=== PATIENT | female | born 1960 | race African-American/Black ===

== ENCOUNTER 2021-03-29 14:12 | Emergency (ER) | payer MEDICAID ==
[~2021-03-29] VITALS: Ht 167.6 cm; Wt 53.0 kg
[2021-03-29] MEDS ORDERED: IBUPROFEN 400MG TABLET PO ONE (18:00)
[2021-03-29] MEDS ORDERED: ONDANSETRON 4MG ODT PO ONE (18:00)
[2021-03-29] MEDS ORDERED: ONDANSETRON HCL 4MG/2ML INJ IV STA (21:18)
[2021-03-29] MEDS ORDERED: FAMOTIDINE 20MG/2ML VIAL IV STA (21:18)
[2021-03-29] MEDS ORDERED: MAGNESIUM/ALUMINUM HYDROXIDE/SIMETHICONE 30ML UDC PO STA (21:18)
[2021-03-29] MEDS ORDERED: SODIUM CHLORIDE 0.9% 1,000 ML IV ONE (21:30)
[2021-03-29 22:21] LABS: BASOPHILS % 0.6 % (0.0-2.0); EOSINOPHILS % 0.4 % (0.0-5.0); HEMATOCRIT. 45.5 % (36.0-48.0); HEMOGLOBIN. 15.2 g/dL (12.0-16.0); LYMPHOCYTES % 43.5 % (20.0-50.0); MEAN CORPUSCULAR HEMOGLOBIN 30.2 pg (28.0-32.0); MEAN CORPUSCULAR VOLUME 90.6 fL (81.0-99.0); MEAN PLATELET VOLUME 6.2 fl (7.4-10.4); MONOCYTES % 7.5 % (2.0-8.0); PLATELET 290 x1000/uL (130-400); RED BLOOD CELL COUNT 5.03 mill/uL (4.2-5.4); RED CELL DISTRIBUTION WIDTH 13.9 % (11.6-14.6)
[2021-03-29 22:25] LABS: CHLORIDE 106 mEq/L (98-107)
[2021-03-29 22:31] LABS: TOTAL IRON BINDING CAPACITY 423 ug/dL (250-450)
[2021-03-29 22:38] LABS: HCG SCREEN NEGATIVE
[2021-03-29 22:43] LABS: CLARITY URINE CLEAR (CLEAR); COLOR URINE YELLOW (YELLOW); KETONES URINE TRACE (NEGATIVE); LEUKOCYTE ESTERASE URINE 1+ (NEGATIVE); NITRITE URINE NEGATIVE (NEGATIVE); OCCULT BLOOD URINE TRACE (NEGATIVE); PH URINE 6.5 (4.5-8.0); PROTEIN URINE NEGATIVE (NEGATIVE); SPECIFIC GRAVITY URINE 1.015 (1.005-1.030)
[2021-03-30 00:38] VITALS: BP 125/78
== END 2021-03-30 00:40 | disposition home or self-care (01) ==
LOC: ER 14:12
DX: R11.2 Nausea with vomiting, unspecified (principal); D64.9 Anemia, unspecified; Z88.0 Allergy status to penicillin; Z79.899 Other long term (current) drug therapy; Z88.8 Allergy status to other drugs, medicaments and biological substances; Z90.710 Acquired absence of both cervix and uterus; Z98.51 Tubal ligation status; Z20.822 Contact with and (suspected) exposure to COVID-19
CPT/HCPCS: 36415; 71045; 80053; 81003; 81025; 82248; 83540; 83550; 83690; 84703; 85025; 87426; 87804; 93005; 96361; 96374; 96375; 99285; J2405; J3490; J7030; 80076